=== PATIENT | female | born 1990 ===

== ENCOUNTER 2025-06-13 22:55 | Inpatient (IN) ==
[2025-06-13] MEDS ORDERED: OXYTOCIN 30 UNITS/NSS 30 UNITS/500 ML BAG IV PRN (23:18)
[2025-06-13] MEDS ORDERED: LIDOCAINE 1% LOCAL 20 ML VIAL INFIL PRN (23:18)
[2025-06-13] MEDS: LACTATED RINGER'S 1,000 ML IV PRN (23:35)
[2025-06-13 23:42] LABS: Hematocrit (blood only) 30.7 % (37.0-47.0); Hemoglobin 10.5 g/dl (12.0-16.0); Mean Corpuscular Hemoglobin 30.7 pg (25.0-34.0); Mean Corpuscular Volume 89.8 fL (80.0-100.0); Platelet Count 113 K/uL (130-400); RDW Standard Deviation 44.0 fL (36.4-46.3); Red Blood Count 3.42 M/uL (4.20-5.40); White Blood Count 8.49 K/ul (4.8-10.8)
[2025-06-14] MEDS: fentANYL 2 MCG/ML BUPIVacaine 0.125%-NSS 100ML BAG ONE (06:37)
[2025-06-14] MEDS: BUPIVACAINE 0.25% PF 30 ML VIAL ONE (06:43)
[2025-06-14] MEDS: LIDOCAINE 2%/EPINEPHRINE 1:200,000 20 ML PF ONE (06:43)
[2025-06-14] MEDS ORDERED: BUPIVACAINE 0.25% PF 30 ML VIAL EPI PRN (06:45)
[2025-06-14] MEDS ORDERED: diphenhydrAMINE 50 MG/ML VIAL IV PRN (06:45)
[2025-06-14] MEDS ORDERED: LIDOCAINE 2% MPF LOCAL 5 ML VIAL EPI PRN (06:45)
[2025-06-14] MEDS: SODIUM CHLORIDE 0.9% PF INJ 10 ML VIAL ONE (06:45)
[2025-06-14] MEDS ORDERED: NALOXONE HCL 1 MG in SODIUM CHLORIDE 0.9% 1,000 ML IV PRN (06:45)
[2025-06-14] MEDS ORDERED: ROPIVACAINE 0.5% PF 5 MG/ML 20 ML VIAL EPI PRN (06:45)
[2025-06-14] MEDS ORDERED: NALBUPHINE HCL INJ 10 MG/ML AMP IV PRN (06:45)
[2025-06-14] MEDS ORDERED: NALOXONE HCL 0.4 MG/1 ML VIAL/CARP IV PRN (06:45)
[2025-06-14] MEDS ORDERED: fentANYL 2 MCG/ML BUPIVacaine 0.125%-NSS 100ML BAG EPI PRN (06:45)
[2025-06-14] MEDS ORDERED: SODIUM CHLORIDE 0.9% PF INJ 10 ML VIAL EPI PRN (06:45)
--- NOTE | 2025-06-14 06:45 | Anesthesiology Consultation ---
Date of Service June 14, 2025 Assessment & Plan Chart Review Chart Review: Acceptable Risk for Labor Epidural Consults Requested none History Height/Weight Height: 5 ft 1.81 in Weight: 63.957 kg Allergies Allergy/AdvReac Type Severity Reaction Status Date / Time No Known Allergies Allergy Verified 06/13/25 23:17 Medications Home Medications Medication Instructions Recorded Confirmed Last Taken folic acid PO 12/12/24 06/07/25 Unknown iodine PO 12/12/24 06/07/25 06/06/25 breast pump #1 ea 04/11/25 06/07/25 Unknown vits no.124-ferrous fum 1 tab PO DAILY 06/13/25 06/13/25 Unknown 27 mg iron-folic acid 800 mcg tablet ( Vitamin) Active Medications Generic Name Dose Route Start Last Admin Trade Name Freq PRN Reason Stop Dose Admin Lactated Ringer's 1,000 mls @ 125 mls/hr 06/13/25 23:18 06/14/25 06:21 Lr IV 06/15/25 23:17 125 mls/hr .Q8H PRN Administration L&D Protocol Protocol Past Medical History Medical History Ectopic History of chicken pox Past Family History Family History Father Stroke Denies family history of Ovarian cancer Breast cancer Colorectal cancer Past Surgical History Surgical History S/P ectopic S/P appendectomy Social History Smoking Status: Never smoker Do You Dip or Chew Tobacco: No Hx Alcohol Use: No Hx Substance Use: No substance use type: does not use Physical Exam Vital Signs Last Vital Signs Temp 36.6 C 06/14/25 05:08 Pulse 83 06/14/25 06:43 Resp 18 06/14/25 05:08 BP 95/51 L 06/14/25 06:43 Pulse Ox 99 06/14/25 06:40 Testing Laboratory Results 06/13/25 23:27
[2025-06-14] MEDS: BUPIVACAINE 0.25% PF 30 ML VIAL EPI STA (06:55)
[2025-06-14] MEDS: SODIUM CHLORIDE 0.9% PF INJ 10 ML VIAL EPI STA (06:56)
[2025-06-14] MEDS: LIDOCAINE 2%/EPINEPHRINE 1:200,000 20 ML PF EPI STA (06:56)
[2025-06-14] MEDS: OXYTOCIN 30 UNITS/NSS 30 UNITS/500 ML BAG IV PRN ×2 (07:03→11:27)
--- NOTE | 2025-06-14 11:07 | Delivery Summary ---
Vaginal Delivery Summary Date of Service June 14, 2025 Vaginal Delivery Summary Patient progressed to 10 cm dilated, 100% effaced, +2 station posterior intact perineum with epidural anesthesia and delivered a viable with weight and Apgars pending. Head the delivered out difficulty quickly followed by shoulders and body. was noted to have moderate tone but without vigorous cry with stimulation and suctioning. After approximately 30 seconds of stimulation the cord was doubly clamped and cut. became vigorous at approximately 45-second dajuan. Cord blood obtained and attention turned to delivery of placenta delivered intact with three-vessel cord with gentle cord traction. Inspection of the perineum, vagina and cervix there is noted to be no lacerations. Sponge and instrument counts were correct at the completion of the case. Both mother and stable in the immediate postdelivery timeframe. No complications noted and blood loss per QBL. [facility] Vaginal Delivery Charge Delivery Type Details: [facility]
[2025-06-14] MEDS ORDERED: HYDROCORTISONE ACETATE 25 MG SUPP PR PRN (11:09)
[2025-06-14] MEDS ORDERED: ACETAMINOPHEN 325 MG TAB PO PRN (11:09)
[2025-06-14] MEDS ORDERED: NON-FORMULARY MEDICATION (Breast Pump device) MS SCH (11:09)
[2025-06-14] MEDS ORDERED: BENZOCAINE 20% SPRY 85 APPLN/85 GM CAN EXT PRN (11:09)
[2025-06-14] MEDS: DIPHTHER/TETAN/PERTUS Vaccine (Tdap, Adol/Adult) 0.5mL IM ONE (11:35)
[2025-06-14] MEDS: METHYLERGONOVINE MALEATE 0.2 MG/ML AMP IM ONE (12:21)
--- NOTE | 2025-06-14 14:53 | Anesthesia Procedure Note ---
Date of Service June 14, 2025 Anesthesia Post Epidural Note Vital Signs Vital Signs: Temp Pulse Resp BP Pulse Ox O2 Del Method 36.5 C 75 18 115/66 89 L Room Air 06/14/25 09:30 06/14/25 13:03 06/14/25 09:30 06/14/25 13:03 06/14/25 10:48 06/14/25 08:00 Notes Mental Status: alert / awake / arousable Nausea / Vomiting: adequately controlled Pain: adequately controlled Airway Patency, RR, SpO2: stable & adequate BP & HR: stable & adequate Hydration State: stable & adequate Neuraxial Anesthesia: was administered and sensory block is resolving Anesthetic Complications: no major complications apparent and Pt Satisfied with anesthetic care Epidural: Removed without complications and With tip intact
[2025-06-14 18:23] VITALS: RESP 16
[2025-06-14] MEDS: DOCUSATE SODIUM 100 MG CAP PO SCH (21:00)
[2025-06-15 04:50] VITALS: O2SAT 98
--- NOTE | 2025-06-15 07:17 | Obstetrical Progress Note ---
Date of Service June 15, 2025 Assessment & Plan (1) examination following vaginal delivery: Plan: 35 y/o ppd 1 s/p . Rh(+) rubella Feels well today. Vital signs stable Continue post- care Encourage ambulation and Pain controlled with ibuprofen Hgb stable Anticipate discharge home today, follow up with in 6 weeks. Admission and Anticipated Discharge Date Admission Date: June 13, 2025 Supervising Physician Co-Signing Physician Notes Patient seen with resident and agree with the above findings and plan. Stable for discharge Subjective 35 y/o ppd 1 s/p . Rh(+) rubella immune Ambulation: ambulating normally Voiding: no voiding problems Passing Gas:: Yes Diet Tolerance:: regular diet Lochia:: Small Feeding Type::breast Current Pain Level: 3-4/10, controlled with ibuprofen Resting comfortably this AM in NAD. Denies MCCLOUD, CP, SOB, N/V/D, LE pain/swelling. Physical Exam Physical Exam: General: patient resting comfortably, NAD, non-toxic in appearance, AA&O x 4, answers questions appropriately. Skin: warm, dry, intact HEENT: NC/AT, anicteric sclera, conjunctiva without injection, moist mucus membranes. Heart: +S1/S2, regular, no m/r/g Lungs: equal air entry bilaterally, no rales/rhonchi/wheezes Abd: +BS, soft, NT/ND, uterine fundus firm tender, below Ext: warm, no clubbing/cyanosis or edema Neuro: nonfocal, patient AA&O x 4, speech intact, no facial droop, moving all extremities on command. Results & Data Vital Signs (Past 12 Hours) Vital Signs Temp Pulse Resp BP Pulse Ox O2 Del Method 06/15/25 04:45 36.8 C 65 16 98/58 L 98 Room Air 06/15/25 00:00 36.7 C 72 16 105/63 97 Room Air 06/14/25 20:00 36.7 C 73 16 103/61 97 Room Air
[2025-06-15 07:19] LABS: Hematocrit (blood only) 29.4 % (37.0-47.0); Hemoglobin 9.7 g/dl (12.0-16.0); Mean Corpuscular Hemoglobin 29.6 pg (25.0-34.0); Mean Corpuscular Volume 89.6 fL (80.0-100.0); Platelet Count 96 K/uL (130-400); RDW Standard Deviation 44.6 fL (36.4-46.3); Red Blood Count 3.28 M/uL (4.20-5.40); White Blood Count 11.62 K/ul (4.8-10.8)
[2025-06-15] MEDS: PRENATAL VITAMIN 1 TAB PO SCH (09:16)
[2025-06-15] MEDS: IBUPROFEN 600 MG TAB PO PRN (09:16)
[2025-06-15 10:07] VITALS: BP 102/64; PULSE 74; TEMP 97.5
--- NOTE | 2025-06-17 11:49 | Coding Query ---
CODING QUERY To promote full compliance with coding requirements relating to patient care, provider participation is requested in all cases of sewer builder uncertainty. Please assist us with the question(s) below: Coding Question(s): Please specify below, the number of weeks of gestation of the upon admission: ( ) Weeks of gestation of the on admission: 39 ( ) Unknown number of weeks of gestation on admission Physician's Response(s): Thank you Melanie Batista Principal Diagnosis: "that condition established after study, to be chiefly responsible for occasioning the admission of the patient to the hospital for care." Co-Existing Principal Diagnosis: "when two or more diagnoses equally meet the criteria for principal diagnosis as determined by the circumstances of admission, diagnostic work up, and/or therapy provided, and the Alphabetic Index, Tabular List, or another coding guideline does not provide sequencing direction, any one of the diagnoses may be sequenced first." "When the physician has documented what appears to be a current diagnosis in the body of the record, but has not included the diagnosis in the final diagnostic statement, the physician should be asked whether the diagnosis should be added." (Source [facility]oding [facility] 2 QTR90. p3-4) THA
== END 2025-06-15 14:40 | disposition home or self-care (01) | DRG 807 ==
LOC: OPB 22:55 → 4S1 22:57 → 4E2 06-14 13:27